=== PATIENT | male | born 1995 | race Caucasian/White ===

== ENCOUNTER 2018-02-23 16:02 | Emergency (ER) | payer OTHER ==
[2018-02-23 16:07] VITALS: BP 128/57
[2018-02-23] MEDS ORDERED: TETRACAINE HCL 0.5% OPH SOLN 2 ML OD ONE (16:31)
--- NOTE | 2018-02-23 17:36 | ER Document Report ---
ED General - General Chief Complaint: Foreign Body in Eye Stated Complaint: EYE INJURY Time Seen by Provider: 02/23/18 16:31 Mode of Arrival: Ambulatory Information source: Patient Notes: Patient is an otherwise healthy 22-year-old male who presents with right eye redness and pain. Patient denies any change in his vision. Patient reports that he usually wears contact lenses. 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 Patient reports that last night when he took his contact lens out he had an itchiness in his eye. Patient reports that this morning when he woke up his eye felt red and he felt like there may have been something in it. TRAVEL OUTSIDE OF THE [place] IN LAST 30 DAYS: No - Related Data Allergies/Adverse Reactions: No Known Allergies Allergy (Unverified 02/23/18 16:05) Past Medical History - General Information source: Patient - Social History Smoking Status: Current Every Day Smoker Chew tobacco use (# tins/day): No Frequency of alcohol use: Occasional Drug Abuse: None Lives with: Spouse/Significant other Family History: Reviewed & Not Pertinent Patient has suicidal ideation: No Patient has homicidal ideation: No - Medical History Medical History: Negative Renal/ Medical History: Denies: Hx Peritoneal Dialysis Past Surgical History: Reports: Hx Oral Surgery - jaw Review of Systems - Review of Systems Constitutional: No symptoms reported EENT: See HPI Cardiovascular: No symptoms reported Respiratory: No symptoms reported Gastrointestinal: No symptoms reported Genitourinary: No symptoms reported Male Genitourinary: No symptoms reported Musculoskeletal: No symptoms reported Skin: No symptoms reported Hematologic/Lymphatic: No symptoms reported Neurological/Psychological: No symptoms reported Physical Exam - Vital signs Vitals: Temp Pulse Resp BP Pulse Ox 98.6 F 74 14 128/57 H 98 02/23/18 16:06 02/23/18 16:06 02/23/18 16:06 02/23/18 16:06 02/23/18 16:06 - Notes Notes: PHYSICAL EXAMINATION: GENERAL: Well-appearing, well-nourished and in no acute distress. HEAD: Atraumatic, normocephalic. EYES: Pupils equal round and reactive to light, extraocular movements intact, sclera anicteric, conjunctiva red to right eye. Conjunctiva normal to left eye. ENT: Nares patent, oropharynx clear without exudates. Moist mucous membranes. NECK: Normal range of motion, supple without lymphadenopathy LUNGS: Breath sounds clear to auscultation bilaterally and equal. No wheezes rales or rhonchi. HEART: Regular rate and rhythm without murmurs Musculoskeletal: Normal range of motion, no pitting or edema. No cyanosis. NEUROLOGICAL: Cranial nerves grossly intact. Normal speech, normal gait. Normal sensory, motor exams PSYCH: Normal mood, normal affect. SKIN: Warm, Dry, normal turgor, no rashes or lesions noted. Course - Re-evaluation Re-evalutation: Eye examination performed utilizing fluorescein and Maza lamp. No foreign body seen, no uptake of fluorescein noted, no corneal abrasion noted. Patient denies any change of his vision. Patient does report itchiness and redness to his eye. Patient does wear contact lenses. Contact lens has been removed. Visual acuity to right eye 20/100. 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 Patient will be treated for possible eye infection with gentamicin drops. 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 - Vital Signs Vital signs: Temp Pulse Resp BP Pulse Ox 98.6 F 74 14 128/57 H 98 02/23/18 16:06 02/23/18 16:06 02/23/18 16:06 02/23/18 16:06 02/23/18 16:06 Discharge - Discharge Clinical Impression: Conjunctivitis Qualifiers: Conjunctivitis type: unspecified Laterality: right Qualified Code(s): H10.9 - Unspecified conjunctivitis Condition: Stable Disposition: HOME, SELF-CARE Additional Instructions: Conjunctivitis You have an infection in your eye. Conjunctivitis causes redness, mild discomfort, itching, and mattering on the eyelids. It is very contagious, so you must be careful to wash your hands after touching your face so you don't pass the infection on to others. Conjunctivitis is caused by both viruses and bacteria. It usually responds quickly to treatment with antibiotic drops. These should be placed in the eye as prescribed (usually every three to four hours while you're awake). If you wear contact lenses, don't put them in your eyes until the infection is cleared and you are no longer using the drops (unless your doctor advises you otherwise). Should you develop increasing eye pain, severe swelling, decreased vision, or fail to improve as expected, please return for re-examination. There is no evidence of any foreign body or object in URI. There was no evidence of any corneal abrasion. Please use the eyedrops as prescribed and follow-up with ophthalmology tomorrow. Prescriptions: Gentamicin Sulfate [Garamycin 0.3% Oph Soln (ER Disp)] 1 drop OD Q4 #1 bottle Forms: Return to Work Referrals: VANCE LOCKHART PA [Primary Care Provider] - Follow up as needed
[2018-02-23] MEDS ORDERED: GENTAMICIN SULFATE 0.3% OPH SOLN (5 ML/ER DISP) OD SCH (18:00)
== END 2018-02-23 17:45 | disposition home or self-care (01) ==
LOC: ER 16:02
DX: H10.9 Unspecified conjunctivitis (principal); F17.200 Nicotine dependence, unspecified, uncomplicated
CPT/HCPCS: 99282; J3490

== ENCOUNTER 2020-03-11 17:51 | Emergency (ER) | payer BC, OTHER ==
[2020-03-11 17:56] VITALS: BP 148/85
[2020-03-11] MEDS ORDERED: METHYLPREDNISOLONE INJ 125 MG/2 ML SDV IM ONE (18:09)
[2020-03-11] MEDS ORDERED: CETIRIZINE 10 MG TABLET PO ONE (18:10)
--- NOTE | 2020-03-11 18:15 | ER Document Report ---
HPI - HPI Patient complains to provider of: Allergic Reaction Time Seen by Provider: 03/11/20 18:06 Pain Level: 1 Context: 24-year-old male presents emergency room after a bee sting to his right posterior shoulder. Complaining of itching and hives. It happened approximately 1 hour ago. No history of allergic reaction to bee stings in the past. States he took Pepcid without relief. Did not take any Zyrtec, Claritin, Benadryl prior to arrival. Patient drove self to the ER denies any shortness of breath, denies any difficulty breathing. Associated Symptoms: None Exacerbated by: Other - Itching Relieved by: Denies Similar symptoms previously: No Recently seen / treated by doctor: No - ROS Systems Reviewed and Negative: Yes All other systems reviewed and negative - CONSTITUTIONAL Constitutional: DENIES: Fever - EENT EENT: DENIES: Sore Throat, Congestion - NEURO Neurology: DENIES: Headache, Weakness - CARDIOVASCULAR Cardiovascular: DENIES: Chest pain - RESPIRATORY Respiratory: DENIES: Trouble Breathing, Coughing - DERM Skin Color: Erythema Skin Problems: Rash Past Medical History - General Information source: Patient - Social History Smoking Status: Current Every Day Smoker Frequency of alcohol use: Occasional Drug Abuse: None Family History: Reviewed & Not Pertinent Renal/ Medical History: Denies: Hx Peritoneal Dialysis Past Surgical History: Reports: Hx Oral Surgery - jaw Vertical Provider Document - CONSTITUTIONAL Agree With Documented VS: Yes Exam Limitations: No Limitations General Appearance: Moderate Distress - INFECTION CONTROL TRAVEL OUTSIDE OF THE [place] IN LAST 30 DAYS: No - HEENT HEENT: Atraumatic, Normocephalic - NECK Neck: Normal Inspection, Supple, Thyroid Normal - RESPIRATORY Respiratory: No Respiratory Distress, Chest Non-Tender, Wheezing - Scattered expiratory - CARDIOVASCULAR Cardiovascular: Regular Rate, Regular Rhythm, No Murmur - MUSCULOSKELETAL/EXTREMETIES Musculoskeletal/Extremeties: FROM, Non-Tender - NEURO Level of Consciousness: Awake, Alert, Appropriate Motor/Sensory: No Motor Deficit, No Sensory Deficit - DERM Integumentary: Warm, Dry, Rash - Scattered urticaria noted to bilateral upper extremities and upper back. Nonblanching, not warm to touch. Course - Re-evaluation Re-evalutation: 03/11/20 18:37 Patient is resting comfortably itching has resolved. Decreased urticaria. Wheezing has resolved. Counseled to take Zyrtec, Claritin, or Benadryl as directed. Start the prednisone tomorrow. Outpatient follow-up with a primary care physician if not improving in 2 to 3 days. On-call physician was provided. Patient was given strict return to the emergency room guidelines. Return for any new or worsening symptoms. All questions were answered. Patient verbalized understanding and agrees with plan of care. 03/11/20 18:42 - Vital Signs Vital signs: Temp Pulse Resp BP Pulse Ox 98.6 F 88 20 148/85 H 97 03/11/20 17:55 03/11/20 17:55 03/11/20 17:55 03/11/20 17:55 03/11/20 17:55 Discharge - Discharge Clinical Impression: Allergic reaction to bee sting Condition: Stable Disposition: HOME, SELF-CARE Instructions: Acute Allergic Reaction ([facility]) Additional Instructions: Take Zyrtec, Claritin, or Benadryl as directed. Start prednisone tomorrow. Outpatient follow-up with a primary care physician if not improving in 2 to 3 days. Return to the emergency room for any new or worsening symptoms. Prescriptions: Prednisone [Deltasone 20 mg Tablet] See Protocol PO DAILY 9 Days #18 tablet Referrals: VANCE LOCKHART PA [NO LOCAL MD] - Follow up as needed TOSHIA TERESA MD [ACTIVE STAFF] - Follow up as needed
== END 2020-03-11 18:44 | disposition home or self-care (01) ==
LOC: ER 17:51
DX: T63.441A Toxic effect of venom of bees, accidental (unintentional), initial encounter (principal); L50.9 Urticaria, unspecified
CPT/HCPCS: 99282; 96374; J2930